=== PATIENT | female | born 1960 | race Caucasian/White ===

== ENCOUNTER 2020-05-06 10:57 | Outpatient (CLI) | payer BC, SELFPAY ==
--- NOTE | ~2020-05-06 | XR_ITS ---
EXAMINATION: XR lumbar spine 2-3V EXAM DATE: 05/06/2020 11:22 INDICATION: M54.9 - Dorsalgia, unspecified. TECHNIQUE: Lumber spine frontal, lateral, lateral L5-S1 projections for interpretation. There is no prior study for comparison. FINDINGS: There is moderate disc disease L4-S1, mild to moderate at L3-4 and mild at the upper lumbar levels. There is 2 mm retrolisthesis L3 on L4. No spondylolysis. There is moderate lumbar facet arth ropathy. Mild dextroscoliosis. Sacrum, sacroiliac joints, sacral arcuate lines are intact. There is I UD projecting over the central aspect of the pelvis. IMPRESSION: 1. Moderate lumbar facet arthropathy and lower lumbar disease. Reviewed, dictated and finalized at location A.
== END 2020-05-06 10:58 ==
LOC: MICIMG 10:59
PROVIDERS: PCP Internal Medicine; Visit Provider Internal Medicine
DX: M51.36 Other intervertebral disc degeneration, lumbar region (principal)
CPT/HCPCS: 72100

== ENCOUNTER 2020-05-20 12:33 | Outpatient (CLI) | payer BC, SELFPAY ==
--- NOTE | 2020-05-25 16:53 | WPDHOLTEREM ---
Holter/Event Monitor Holter/Event Monitor Date of procedure: 05/20/20 Procedure Type: 48 hour holter monitor Indications: Palpitations Conclusion: 1. 48 hour holter monitor on 05/20/20. 2. Underlying rhythm is sinus rhythm. HR range 54-132 bpm; average HR 84 bpm. 3. There are 60 premature supraventricular complexes and 1 supraventricular couplet. No supraventricular tachycardia. 4. There are 515 premature ventricular complexes and 16 ventricular bigeminy. No ventricular tachycardia. 5. No sinoatrial or atrioventricular blocks. No significant pauses greater than 2 seconds. 6. Patient reports symptoms of heart flutter, rapid hear rate, chest heaviness, chest throb which demonstrate sinus rhythm, HR range 82-114 bpm.
== END 2020-05-20 12:34 | disposition home or self-care (01) ==
LOC: ANHCARD 12:34
PROVIDERS: PCP Internal Medicine; Visit Provider Internal Medicine
DX: R07.89 Other chest pain (principal); R00.2 Palpitations
CPT/HCPCS: 93225; 93226

== ENCOUNTER 2022-11-14 02:21 | Day surgery (SDC) | payer BC, SELFPAY ==
[2022-11-01 12:45] VITALS: BMI 37.8
[2022-11-14 07:17] VITALS: BP 144/89; PULSE 66; RESP 18; TEMP 36.4; O2SAT 100
[2022-11-14] MEDS: LACTATED RINGERS 1,000 ML 150 ML IV CONT (07:27)
--- NOTE | 2022-11-14 07:55 | PM.HPGS ---
History of Present Illness History of Present Illness Consent: Risks, benefits, and alternatives have been discussed and questions answered. Patient agrees to proceed with procedure. Chief complaint: neoplasm screening Narrative: Erma Valencia is a 61 year old female Presents for screening colonoscopy. Patient's current weight appetite and bowel movements are normal. Patient denies abdominal pain. She has had no bleeding. Family history is noncontributory. Review of Systems Review of Systems: Review of systems noncontributory. [facility] Past Medical History Medical History Black toe Cellulitis of foot, left Chronic pain of both knees Essential (primary) hypertension Other assisted (current) drug therapy Primary generalized (osteo)arthritis Surgical History Surgical History History of bilateral knee replacement History of left hip replacement Social History Social History (Reviewed 07/27/22 @ 07:12 by Janie France [facility]) Smoking status: Never smoker Alcohol intake: current Drinks per week: 2 Alcohol use details: DRINKS Substance use: never Substance use type: does not use Lack of Transportation: No Lack of Food: Never True Current Housing: I Have Housing Concerned About Future Housing: No Difficulty Paying Gas/Electric Bills: No Difficulty Paying for Meds: No Currently Unemployed: No Education: Associate Degree Difficulty w/ Childcare or Family Care: No Living arrangements: with family Additional living arrangements comments: Occupation/Education: occupation Gender identity (if verbalized by the patient): Female Sexual Orientation (if Verbalized by the Patient): Straight or Heterosexual Spiritual care concerns: No Meds Home Medications and Allergies Home Medications Medication Instructions Recorded Confirmed Type cetirizine 10 mg capsule (Zyrtec) 10 mg PO DAILY 06/12/19 11/01/22 History multivitamin 1 tablet PO DAILY 06/12/19 11/01/22 History cholecalciferol (vitamin D3) 125 125 mcg PO DAILY 05/06/20 11/01/22 History mcg (5,000 unit) capsule candesartan 16 See Rx Instructions .Route 03/22/22 11/01/22 Rx mg-hydrochlorothiazide 12.5 mg .COMPLEX #90 tabs tablet omeprazole 40 mg capsule,delayed 40 mg PO DAILY #90 caps 08/16/22 11/01/22 Rx release sodium,potassium,mag sulfates 17.5 See Rx Instructions PO .COMPLEX 10/07/22 Rx gram-3.13 gram-1.6 gram oral soln #354 mL (Suprep Bowel Prep Kit) naproxen 500 mg tablet,delayed 500 mg PO DAILY pain 11/01/22 11/01/22 History release Allergies Allergy/AdvReac Type Severity Reaction Status Date / Time cortisone Allergy Intermediate Palpitation Verified 11/14/22 07:16 s Vital Signs Vital Signs - 24 hr 11/14/22 07:17 Temperature 97.6 F Pulse Rate 66 Respiratory Rate 18 Blood Pressure 144/89 H Pulse Oximetry 100 Oxygen Delivery Room Air Exam Narrative: Physical exam reveals patient to be alert. Vital signs stable. HEENT exam is unremarkable. Patient is anicteric. Lungs are clear to auscultation and percussion. Heart is without murmur or extra sounds. Abdomen bowel sounds are present soft nontender with no organomegaly. Digital external rectal exam normal. Assessment and Plan Assessment and plan (1) Screening for colon cancer: Code(s): Z12.11 - Encounter for screening for malignant neoplasm of colon Status: Acute Assessment and Plan: Patient presents today for neoplasia screening colonoscopy. She appears to be at average risk for colon polyps. Further recommendations may be given after endoscopy.
--- NOTE | 2022-11-14 08:01 | WPDANESEPPF ---
Anes - Initial Pre Proc Eval Procedure: Operation Date: 11/14/22 08:30 Proposed Procedures p Screening Colonoscopy - Charli Beck MD Date/Time: 11/14/22 08:01 Surgeon: Charli Beck MD Pre Op Diagnosis: neoplasm screening Patient Data Age: 61 Gender: F Height: 1.63 m Weight: 99.6 kg Last Vital Signs Temp 97.6 F 11/14/22 07:17 Pulse 66 11/14/22 07:17 Resp 18 11/14/22 07:17 BP 144/89 H 11/14/22 07:17 Pulse Ox 100 11/14/22 07:17 O2 Del Method Room Air 11/14/22 07:17 Allergies Allergy/AdvReac Type Severity Reaction Status Date / Time cortisone Allergy Intermediate Palpitation Verified 11/14/22 07:16 s Home Medications Medication Instructions Recorded Confirmed Type cetirizine 10 mg capsule (Zyrtec) 10 mg PO DAILY 06/12/19 11/01/22 History multivitamin 1 tablet PO DAILY 06/12/19 11/01/22 History cholecalciferol (vitamin D3) 125 125 mcg PO DAILY 05/06/20 11/01/22 History mcg (5,000 unit) capsule candesartan 16 See Rx Instructions .Route 03/22/22 11/01/22 Rx mg-hydrochlorothiazide 12.5 mg .COMPLEX #90 tabs tablet omeprazole 40 mg capsule,delayed 40 mg PO DAILY #90 caps 08/16/22 11/01/22 Rx release sodium,potassium,mag sulfates 17.5 See Rx Instructions PO .COMPLEX 10/07/22 Rx gram-3.13 gram-1.6 gram oral soln #354 mL (Suprep Bowel Prep Kit) naproxen 500 mg tablet,delayed 500 mg PO DAILY pain 11/01/22 11/01/22 History release Patient hx anesthesia problems: none Family hx anesthesia problems: none Results Review: All pre-operative results and documents have been reviewed as part of the pre-operative evaluation. [facility] Past Medical History Medical History Black toe Cellulitis of foot, left Chronic pain of both knees Essential (primary) hypertension Other termite treater (current) drug therapy Primary generalized (osteo)arthritis Surgical History Surgical History History of bilateral knee replacement History of left hip replacement Social History Social History Smoking status: Never smoker Alcohol intake: current Drinks per week: 2 Alcohol use details: DRINKS Substance use: never Substance use type: does not use Lack of Transportation: No Lack of Food: Never True Current Housing: I Have Housing Concerned About Future Housing: No Difficulty Paying Gas/Electric Bills: No Difficulty Paying for Meds: No Currently Unemployed: No Education: Associate Degree Difficulty w/ Childcare or Family Care: No Living arrangements: with family Additional living arrangements comments: Occupation/Education: occupation Gender identity (if verbalized by the patient): Female Sexual Orientation (if Verbalized by the Patient): Straight or Heterosexual Spiritual care concerns: No Anes - Eval Final PreProcedure Day of Procedure 11/14/22 08:01 Patient weight: obese Heart: regular rate and rhythm Lungs: clear to auscultation Airway: Mallampati scale class II Neurological: alert and oriented Last oral intake: >/= 8 hours ASA classification: II Emergent: no Anesthetic plan: proceed Anesthesia type and monitoring: general GIVS and standard monitoring Results Review: All pre-operative results and documents have been reviewed as part of the pre-operative evaluation. Informed Consent: The patient's anesthetic plan and its attendant risks and benefits were discussed with the patient/family/POA. Questions were solicited and answers provided to the satisfaction of the patient/family/POA.
[2022-11-14 08:58] VITALS: BP 129/72; PULSE 76; RESP 20; O2SAT 100
[2022-11-14 09:08] VITALS: BP 141/90; PULSE 74; RESP 18; O2SAT 100
[2022-11-14 09:18] VITALS: BP 151/68; PULSE 74; RESP 20; O2SAT 100
== END 2022-11-14 09:24 | disposition home or self-care (01) ==
PROVIDERS: PCP Nurse Practitioner; Visit Provider Internal Medicine Gastroenterology
PROC: 0DJD8ZZ Inspection of Lower Intestinal Tract, Via Natural or Artificial Opening Endoscopic (ICD-10-PCS; CPT 45378; principal; 2022-11-14 08:30)
DX: Z12.11 Encounter for screening for malignant neoplasm of colon (principal); K64.8 Other hemorrhoids; I10 Essential (primary) hypertension; E66.9 Obesity, unspecified; Z68.37 Body mass index [BMI] 37.0-37.9, adult
CPT/HCPCS: 45378; J2704; J7120